=== PATIENT | male | born 1965 | race Caucasian/White ===

== ENCOUNTER 2018-12-03 04:14 | Emergency (ER) | payer OTHER ==
[~2018-12-03] VITALS: Ht 172.7 cm; Wt 81.6 kg
[2018-12-03 04:15] VITALS: BP 154/97
--- NOTE | 2018-12-03 04:15 | NUR ---
53/M PRESENTS TO ED, C/O ANXIETY, X2 DAYS. PT STATED FEELING FRUSTRATED FROM NOT GETTING A JOB. PT IS HOMELESS. PT DENIES SI/HI. PT DENIES ANY PAIN. PT AOX4, SKIN NORMAL LOOSE WARM AND DRY, RR EVEN AND UNLABORED. HX ANXIETY, DEPRESSION RX [id number] (NONCOMPLIANT)
--- NOTE | 2018-12-03 04:15 | NUR ---
PT AMBULATED TO BED
[2018-12-03] MEDS ORDERED: LORazepam 1 MG TAB PO ONE (04:50)
[2018-12-03 05:09] VITALS: BP 135/89
--- NOTE | 2018-12-03 05:09 | NUR ---
Patient discharged with v/s stable. Written and verbal after care instructions given and explained. Patient verbalized understanding. Ambulatory with steady gait. All questions addressed prior to discharge. Advised to follow up with PMD.
== END 2018-12-03 05:09 | disposition home or self-care (01) ==
LOC: MED 04:14
DX: F41.9 Anxiety disorder, unspecified (principal); F32.9 Major depressive disorder, single episode, unspecified
CPT/HCPCS: 99284

== ENCOUNTER 2018-12-07 03:17 | Emergency (ER) | payer OTHER ==
[~2018-12-07] VITALS: Ht 172.7 cm; Wt 72.6 kg
[2018-12-07 03:38] VITALS: BP 122/75
--- NOTE | 2018-12-07 03:46 | NUR ---
PT AMBULATED TO BED 11 WITH STEADY GAIT.
--- NOTE | 2018-12-07 03:51 | NUR ---
53/M CC R BUTTOCK ABCESS. SMALL OPENING NOTED. NO DRAINAGE NOTED. BUMP PRESENT FOR SEVERAL DAYS WITHOUT PAIN. NO FEVER. DENIES HX. DENIES RX. AOX4. ABLE TO VERBALIZE NEEDS. WILL CONTINUE TO MONITOR.
[2018-12-07] MEDS ORDERED: LIDOCAINE 1% 500 MG/50 ML VIAL INJ SCH (04:30)
[2018-12-07] MEDS ORDERED: VANCOMYCIN 1,000 MG in DEXTROSE 5% 250 ML IV ONE (04:30)
[2018-12-07] MEDS ORDERED: VANCOMYCIN 1,000 MG VIAL ONE (04:43)
[2018-12-07] MEDS ORDERED: LIDOCAINE MPF 1% - 5 mL VIAL 0 ML ONE (04:44)
[2018-12-07] MEDS ORDERED: LIDOCAINE MPF 1% - 5 mL VIAL 5 ML ONE (05:09)
--- NOTE | 2018-12-07 07:10 | NUR ---
RECEIVED REPORT FROM CARYN WATTS. PT'S IV HAS BEEN REMOVED BY CARYN WATTS. VSS.
[2018-12-07 07:17] VITALS: BP 123/74
--- NOTE | 2018-12-07 07:17 | NUR ---
Patient discharged with v/s stable. Written and verbal after care instructions given and explained. Patient alert, oriented and verbalized understanding of instructions. Ambulatory with steady gait. All questions addressed prior to discharge. Patient advised to follow up with PMD. Rx of Bactrim, Keflex, and Naprosyn given. Patient educated on indication of medication including possible reaction and side effects. Opportunity to ask questions provided and answered.
--- NOTE | 2018-12-10 13:35 | NUR ---
Late entry. Confirmed with RN that 1000ml 0.9 NS IV began at 0520 and completed at 0700.
== END 2018-12-07 07:17 | disposition home or self-care (01) ==
LOC: MED 03:17
DX: L02.31 Cutaneous abscess of buttock (principal)
CPT/HCPCS: 10060; 36415; 87040; 87070; 87186; 96365; 96366; 99283; J2001; J3370